=== PATIENT | female | born 1970 | race Caucasian/White ===

== ENCOUNTER → 2017-08-01 | Outpatient (CLI) | payer OTHER ==
[~2017-08-01] MED LIST: ABILIF5PT PO; ALBU8.5H12 IH; CALC500T6 PO; CETI-169 PO; CHOL500045 PO; FERR325C2 PO; FLUO-202 PO; FLUT1DIS28 IH
[2017-08-01 11:46] LABS: LDL CHOLESTEROL 94 mg/dl
== END ==
LOC: LAB 09:34
PROVIDERS: ATTEND Family Medicine
DX: Z00.00 Encounter for general adult medical examination without abnormal findings (principal)
CPT/HCPCS: 36415; 82040; 82247; 82310; 82374; 82435; 82465; 82565; 82947; 83718; 84075; 84132; 84155; 84295; 84443; 84450; 84460; 84478; 84520; 85027

== ENCOUNTER → 2017-10-29 | Outpatient (CLI) | payer OTHER ==
--- NOTE | 2017-10-29 14:10 | RADIOLOGY IMAGING REPORT ---
[place] [facility] [place] Blanche Philippe : 1970 MR: [id number] V: [id number] EXAM DATE: ORDERING PHYSICIAN: MARIO SMALLS TECHNOLOGIST: Location[place] [facility] [place] Patient: Blanche Philippe : 1970 Visit/Account:[id number] Date of Sevice: 10/29/2017 Transabdominal and transvaginal pelvic ultrasound INDICATION: Right ovarian enlargement. COMPARISON: None Available FINDINGS: Uterus measures 6.7 x 3.4 x 4.2 cm and is anteverted. Small nabothian cysts are seen. Intrauterine device is in place which appears appropriately positioned. Visualized portion of the en dometrial echo complex measures 4 mm in thickness. There is no free fluid in the cul-de-sac. Pelvic vessels appear unremarkable on this examination. Right ovary measures 2.0 x 2.2 x 1.6 cm and shows normal blood flow and contains an ovoid region of i ncreased echogenicity. This measures 1.0 x 0.4 x 1.0 cm in size. This could reflect a small fat-con taining dermoid. Consider follow-up to ensure stability. The left ovary was not seen. IMPRESSION: 1. Normal sonographic appearance of the uterus with an appropriately positioned IUD. 2. Indeterminate 10 mm ovoid hyperechoic lesion within the right ovary. This could represent a smal l fat-containing ovarian dermoid. Consider follow-up to confirm longer-term stability. 3. Nonvisualization of the left ovary. Report Dictated By: Milo Conrad at 10/29/2017 2:01 PM Report E-Signed By: Milo Conrad at 10/29/2017 2:06 PM WSN:[id number]
--- NOTE | 2017-10-30 11:21 | RADIOLOGY IMAGING REPORT ---
FACILITY: [facility] PATIENT NAME: TANNA SIERRA : [id number] MR: [id number] V: [id number] EXAM DATE: [id number] ORDERING PHYSICIAN: MARIO SMALLS TECHNOLOGIST: Padmini Moy PROCEDURE:BILATERAL DIGITAL SCREENING MAMMOGRAM WITH CAD ASSISTED INTERPRETATION & 3D TOMOSYNTHESIS COMPARISON:Prior mammograms 06/06/16 & 03/19/15. INDICATIONS:SCREENING FINDINGS: There is no dominant mass, suspicious cluster of microcalcifications or persistent areas of architectural distortion in either breast. Right axillary lymph node is stable. DIAGNOSTIC CATEGORY 1--NEGATIVE. RECOMMENDATIONS: ROUTINE MAMMOGRAM AND CLINICAL EVALUATION IN 1 YEAR. IMPRESSION: BIRADS 1: Negative. Dictated by: Silvestre Gupta M.D. on 10/30/2017 at 11:01 Transcribed by: OTONIEL on 10/30/2017 at 11:07 Approved by: Silvestre Gupta M.D. on 10/30/2017 at 11:20 [facility]
== END ==
LOC: MAMO 00:05
PROVIDERS: ATTEND Family Medicine
DX: N83.8 Other noninflammatory disorders of ovary, fallopian tube and broad ligament (principal); Z97.5 Presence of (intrauterine) contraceptive device
CPT/HCPCS: 76856; 77063; 77067

== ENCOUNTER → 2018-11-18 | Outpatient (CLI) | payer OTHER ==
[~2018-11-18] MED LIST changes: +FLAX100029 PO; +LEVO50TA80 PO; +MELA3TAB31 PO; +MULT1CAP59 PO
--- NOTE | 2018-11-18 10:10 | RADIOLOGY IMAGING REPORT ---
FACILITY: [facility] PATIENT NAME: Blanche Philippe : 1970 MR: [id number] V: [id number] EXAM DATE: ORDERING PHYSICIAN: MARIO SMALLS TECHNOLOGIST: Location: [facility] [place] Patient: Blanche Philippe : 1970 Visit/Account:[id number] Date of Sevice: 11/18/2018 EXAMINATION: MRI lumbar spine without IV contrast HISTORY: Low back pain, muscle spasms, no known injury COMPARISON: Radiographs from 11/14/2018. TECHNIQUE: Multi-planar, multi-sequence lumbar spine MRI was performed without intravenous contrast administration. FINDINGS: Alignment: Mild dextrocurvature. Vertebral marrow signal: Negative. Distal thoracic cord: Negative. Conus: negative, terminates at L1 Cauda equina: Negative. Paravertebral soft tissues: Negative. Visualized abdominal and pelvic structures: Negative. Disc Spaces: Lower thoracic spine: Normal. L1-2: Normal. L2-3: Normal. L3-4: Normal. L4-5: Early disc degeneration with desiccation, mild height loss and central annular fissure. Mild br oad disc bulge flattens the ventral thecal sac and narrows the lateral recesses crowding the traversi ng nerve roots. No significant spinal canal or foraminal stenosis. L5-S1: Discogenic degenerative changes with loss of disc height, mild broad disc bulge and central an nular fissure. Disc bulge indents the ventral thecal sac and narrows the lateral recesses bilaterally . There is mild right foraminal narrowing. IMPRESSION: Mild degenerative changes of the L4-5 and L5-S1 levels. Report Dictated By: JENNI MONDRAGON at 11/18/2018 9:54 AM Report E-Signed By: JENNI MONDRAGON at 11/18/2018 9:59 AM WSN:[email or web address]
== END ==
LOC: MRI 08:44
PROVIDERS: ATTEND Family Medicine
DX: M51.36 Other intervertebral disc degeneration, lumbar region (principal); M51.37 Other intervertebral disc degeneration, lumbosacral region
CPT/HCPCS: 72148